=== PATIENT | male | born 1980 | race Caucasian/White ===

== ENCOUNTER 2017-03-16 23:32 | Inpatient (IN) | payer MEDICAID ==
[~2017-03-16] VITALS: Ht 182.9 cm; Wt 85.3 kg
--- NOTE | 2017-03-17 00:26 | NUR ---
PT WALKED INTO ER C/O LEFT FOREARM PAIN/EDEMA SINCE 0900, PT IS ALERT, ORIENTED X 4, NO RESP DISTRESS NOTED OR REPORTED UPON ASSESSMENT... MD AT BEDSIDE....
[2017-03-17] MEDS ORDERED: PIPERACILLIN SODIUM/TAZOBACTAM 3.375 G in IV DEXTROSE 5% 50 ML IV ONE ×2 (01:15→03:00)
[2017-03-17] MEDS ORDERED: VANCOMYCIN IV 1,000 MG in IV DEXTROSE 5% 250 ML IV ONE (01:15)
[2017-03-17] MEDS ORDERED: Z GUARD REMEDY PASTE 57 GM TUBE TOP PRN (02:00)
[2017-03-17] MEDS ORDERED: ONDANSETRON 4 MG/2 ML VIAL IV PRN (02:00)
[2017-03-17] MEDS ORDERED: KETOROLAC TROMETHAMINE 30 MG INJ IVP PRN (02:00)
[2017-03-17] MEDS ORDERED: ACETAMINOPHEN 325 MG TABLET PO PRN (02:00)
[2017-03-17] MEDS ORDERED: TEMAZEPAM 7.5 MG CAPSULE PO PRN (02:00)
[2017-03-17] MEDS ORDERED: MAGNESIUM HYDROXIDE 30 ML LIQUID UDC PO PRN (02:00)
[2017-03-17] MEDS ORDERED: CEFTRIAXONE 1 G VIAL IM ONE (02:15)
[2017-03-17] MEDS ORDERED: METRONIDAZOLE 500 MG TABLET PO ONE (02:15)
[2017-03-17] MEDS ORDERED: HYDROMORPHONE 1 MG/1 ML DISP.SYRIN IM ONE (02:15)
[2017-03-17] MEDS ORDERED: SULFAMETH/TRIMETH 800/160 MG TABLET PO ONE (02:15)
[2017-03-17] MEDS ORDERED: HYDROMORPHONE 2 MG/1 ML DISP.SYRIN ONE (03:11)
[2017-03-17] MEDS ORDERED: SULFAMETH/TRIMETH 800/160 MG TABLET ONE (03:11)
[2017-03-17] MEDS ORDERED: LIDOCAINE 1%-EPI 1:100,000 20 ML VIAL ONE (03:11)
[2017-03-17] MEDS ORDERED: CEFTRIAXONE 1 G VIAL ONE (03:11)
[2017-03-17] MEDS ORDERED: METRONIDAZOLE 500 MG TABLET ONE (03:12)
[2017-03-17] MEDS ORDERED: PIPERACILLIN/TAZOBACTAM/D5W 50 ML IV ONE (03:15)
--- NOTE | 2017-03-17 03:25 | NUR ---
PHARMACY NOTE: OPENED AND WASTED LIDOCAINE 1% WITH EPI DUE TO ERROR, USED ALREADY OPENED VIAL OF LIDOCAINE 1% THAT WAS TIME AND DATED IN MEDICATION ROOM...
--- NOTE | 2017-03-17 03:45 | NUR ---
RECEIVED PATIENT VIA GURNEY FROM ER. PATIENT IS A/O X4. C/O PAIN IN LEFT ARM. HEPLOCK NOTED TO LEFT INDEX FINGER #20 GAUGE. ORIENTED PATIENT TO ROOM AND CALL LIGHT. CALL LIGHT IN REACH. ALL NEEDS ATTENDED. WILL CONTINUE TO MONITOR AND ASSESS.
--- NOTE | 2017-03-17 03:55 | NUR ---
Pt. admitted to Med Surg , under care of Dr. Tomi Hood, [place]ongs List completed, pt is alert, oriented x 4, no resp distress noted or reported upon transfer assessment...pt transferred via gurney...
--- NOTE | 2017-03-17 04:00 | NUR ---
REPORTED BY ER PRIOR TO ADMISSION THAT NO LABS WERE ABLE TO BE DRAWN. PLAN IS FOR PATIENT TO HAVE MID-LINE INSERTED TODAY. DIRECTOR INVESTMENT BANKING NOTIFIED.
[2017-03-17] MEDS: IV NS 1000 ML 1,000 ML IV PRN ×2 (04:09→23:00)
[2017-03-17 04:30] VITALS: BP 97/46
--- NOTE | 2017-03-17 04:45 | NUR ---
PATIENT C/O "INTENSE PAIN" AND REQUESTING FOR "STRONGER PAIN MEDICATION." PATIENT BP IS 97/46 AT THIS TIME. WILL CONTINUE TO MONITOR AND ASSESS BLOOD PRESSURE.
--- NOTE | 2017-03-17 04:52 | NUR ---
PATIENT DOZING OFF IN BED. NO FACIAL GRIMACE NOTED. NO S/S OF PAIN OR DISCOMFORT. WILL CONTINUE TO MONITOR.
[2017-03-17] MEDS ORDERED: PIPERACILLIN/TAZOBACTAM/D5W 50 ML IV SCH ×2 (06:00→08:10)
[2017-03-17 06:29] VITALS: BP 115/63
--- NOTE | 2017-03-17 06:31 | NUR ---
PATIENT AWAKE IN BED. RECHECKED PATIENTS BLOOD PRESSURE 115/63. ALL OTHER VSS. PATIENT STATING HE HAS PAIN IN ARMS. OFFERED TORADOL IV ORDERED BUT PATIENT REFUSED AND STATED, "THAT MEDICATION DOESN'T WORK." CALLED OUT TO DR. NELSON PROPOSAL LEAD WRITER FOR FURTHER ORDERS. WILL CONTINUE TO MONITOR.
--- NOTE | 2017-03-17 06:43 | NUR ---
SPOKE WITH DR. NELSON. NO NEW ORDERS REGARDING PAIN MEDICATION AT THIS TIME. SUBWAY REPAIR SUPERVISOR NOTIFIED.
--- NOTE | 2017-03-17 07:58 | NUR ---
Awake, alert, oriented x 4, complaining of pain of left arm. Left arm red, swollen. IVF stopped infusing on the left index finger at this time, will wait for midline insertion. Plan of care and pain management discussed.
[2017-03-17] MEDS ORDERED: VANCOMYCIN IV 1 G in PREMIXED 0 EACH IV ONE (09:00)
[2017-03-17] MEDS: PANTOPRAZOLE SODIUM 40 MG TABLET.DR PO SCH (09:59)
--- NOTE | 2017-03-17 10:17 | NUR ---
Followed up call to midline nurse. IV antibiotics not given pending IV access
[2017-03-17 11:00] VITALS: BP 114/68
[2017-03-17] MEDS ORDERED: LORAZEPAM 1 MG TABLET PO PRN (14:30)
[2017-03-17] MEDS: ASPIRIN EC 81 MG TABLET.DR PO SCH (15:22)
--- NOTE | 2017-03-17 15:22 | NUR ---
Doppler LUE showed thrombophlebitis of rleft arm. Started on aspirin. No open wound or drainage noted on left arm, wound CS can not be done
[2017-03-17] MEDS: HYDROCODONE/APAP 5-325MG TABLET PO PRN (15:25)
--- NOTE | 2017-03-17 15:30 | NUR ---
Anshu for midline called back, will be able to come around 7 pm tonight for midline insertion. Janice ANTHROPOLOGY INSTRUCTOR informed. pharmacist informed
[2017-03-17 15:32] VITALS: BP 135/84
--- NOTE | 2017-03-17 18:00 | NUR ---
Dr. Conde for ID seen patient with orders. MRSA nares swab done sent to lab. Placed on contact isolation, with history of MRSA, pending swab result. Patient and friend instructed and educated. PO antibiotics given as ordered, pending midline placement, and will resume IV antibiotics once line placed. Anxious, Ativan po given. Endorsed for further care and follow up
[2017-03-17] MEDS: SULFAMETH/TRIMETH 800/160 MG TABLET PO SCH ×2 (18:01→21:31)
[2017-03-17] MEDS: CEPHALEXIN MONOHYDRATE 500 MG CAPSULE PO SCH (18:01)
--- NOTE | 2017-03-17 19:00 | NUR ---
PATIENT IN BED SLEEPY BUT EASILY AROUSABLE, NO SOB NO CHEST PAIN NOTED, CONT TO MONITOR.
[2017-03-17 20:00] VITALS: BP 139/78
--- NOTE | 2017-03-17 21:15 | NUR ---
PATIENT HAS MIDLINE GAUGE 20, INSERTED BY [place] MIDLINE STAFF, TOLERATE WELL, MIDLINE AT LEFT UPPER ARM 2 PORT BUT ONE MIDLINE. MIDLINE PATENT, AND INTACT, WITH FAIRLY GOOD BLOOD RETURN. ALL LAB DRAW DONE TODAY. STARTED THE IV HYDRATION AND IV ABX, PROCEDURE TOLERATE WELL. CONT TO MONITOR.
[2017-03-17 22:34] LABS: BASOPHILS # (AUTO) 0.1 K/uL (0.0-8.0); BASOPHILS % (AUTO) 1.1 % (0.0-2.0); EOSINOPHILS # (AUTO) 0.1 K/uL (0.0-0.7); EOSINOPHILS % (AUTO) 1.8 % (0.0-7.0); HEMATOCRIT 29.4 % (40-50); HEMOGLOBIN 10.2 G/DL (14.0-18.0); LYMPHOCYTES # (AUTO) 0.9 K/UL (0.8-4.8); LYMPHOCYTES % (AUTO) 13.5 % (20.5-51.5); MEAN CORPUSCULAR HEMOGLOBIN 29.3 UUG (27.0-31.0); MEAN CORPUSCULAR HGB CONC 35 g/dL (32.0-37.0); MEAN CORPUSCULAR VOLUME 84.7 FL (82.0-92.0); MONOCYTES # (AUTO) 0.5 K/UL (0.1-1.30); MONOCYTES % (AUTO) 7.5 % (0.0-11.0); NEUTROPHILS # (AUTO) 4.8 K/UL (1.8-8.9); NEUTROPHILS % (AUTO) 76.1 % (38.5-71.5); PLATELET COUNT (AUTO) 167 K/UL (150-450); RED BLOOD CELL COUNT(AUTO) 3.47 MIL/UL (4.7-6.1); WHITE BLOOD COUNT (AUTO) 6.4 K/UL (4.0-11.2)
[2017-03-17 22:36] LABS: POTASSIUM 4.1 mmol/L (3.5-5.1)
[2017-03-17 22:42] LABS: BILIRUBIN,TOTAL 0.8 mg/dL (0.2-1.0); MAGNESIUM 1.9 mg/dL (1.8-2.4); PHOSPHOROUS 4.4 mg/dL (2.5-4.9)
[2017-03-17 22:50] LABS: BAND % (MANUAL) 10 % (0-10); EOSINOPHILS % (MANUAL) 1 % (0-8); LYMPHOCYTES % (MANUAL) 12 % (20-40); MONOCYTES % (MANUAL) 6 % (2-10); NEUTROPHILS % (MANUAL) 71 % (42-75)
--- NOTE | 2017-03-18 00:13 | NUR ---
KEFLEX NOT GIVEN, STARTED IV ANTIBIOTICS ORDERED.
[2017-03-18] MEDS: HYDROCODONE/APAP 5-325MG TABLET PO PRN ×2 (02:28→08:53)
[2017-03-18] MEDS: CEPHALEXIN MONOHYDRATE 500 MG CAPSULE PO SCH ×2 (06:00)
[2017-03-18 06:04] VITALS: BP 112/64
[2017-03-18] MEDS: PANTOPRAZOLE SODIUM 40 MG TABLET.DR PO SCH (06:32)
--- NOTE | 2017-03-18 06:35 | NUR ---
KEFLEX MEDS NOT GIVEN IV ANTIBIOTICS STARTED. PER ORDER.
--- NOTE | 2017-03-18 07:04 | NUR ---
PATIENT ALERT ORIENTED, REMAIN ON ISOLATION POSSIBLE MRSA UNSPECIFIED SITE, MIDLINE INTACT PATENT, ON PAIN MANAGEMENT, NO SOB NO CHEST PAIN NOTED, CONT TO MONITOR.
[2017-03-18] MEDS ORDERED: VANCOMYCIN IV 1,250 MG in IV DEXTROSE 5% 500 ML IV SCH (08:00)
--- NOTE | 2017-03-18 08:00 | NUR ---
RESTING WELL NO PAIN OR SOB CONTINUE IVF INFUSION WELL CALL LIGHT WITHIN REACH
[2017-03-18] MEDS: PIPERACILLIN/TAZOBACTAM/D5W 3.375 G in PREMIXED 1 EACH IV SCH ×3 (08:39→22:21)
[2017-03-18] MEDS: VANCOMYCIN IV 1,250 MG in IV DEXTROSE 5% 500 ML IV SCH ×4 (08:40→20:01)
[2017-03-18] MEDS: ASPIRIN EC 81 MG TABLET.DR PO SCH (08:40)
[2017-03-18] MEDS: IV NS 1000 ML 1,000 ML IV PRN ×2 (08:54→13:38)
--- NOTE | 2017-03-18 11:00 | NUR ---
BEATRIZ LANDA SEE PATIENT AND NEW ORDER IN CHART
[2017-03-18] MEDS: MORPHINE SULFATE 2 MG/1 ML DISP.SYRIN IV PRN ×3 (11:22→20:02)
[2017-03-18 11:28] VITALS: BP 110/58
--- NOTE | 2017-03-18 12:05 | NUR ---
WOUND CARE CONSULT: PT PRESENTS AMBULATORY WITH LEFT ARM SWELLING/REDNESS, PRESENT ON ADMISSION. WILL SEE PRN. DEFER TO MD. Addendum: 03/18/17 at 1205 by ANEL ANTHONY RN Amended: Links added.
[2017-03-18 14:23] LABS: *AMPHETAMINE, URINE NEGATIVE (NEGATIVE); *BARBITURATE, URINE NEGATIVE (NEGATIVE); *CANNABINOID, URINE POSITIVE (NEGATIVE); *COCCAINE, URINE NEGATIVE (NEGATIVE); *OPIATE, URINE POSITIVE (NEGATIVE); *PHENCYCLIDINE SCREEN,URINE NEGATIVE (NEGATIVE)
--- NOTE | 2017-03-18 14:29 | NUR ---
Clinical Pharmacy Note: Vancomycin Pharmacy to Dose Subjective: To start vancomycin in this 36 yo male for indication of cellulitis. Patient also on zosyn Objective: height 72in weight 188 lbs BUN 11Scr 1.0Wbc 6.4Temp 97.9 One dose of 1gm vanco given 03/17 @2698 Assessment/Plan Will start scheduled regimen of 1250mg q9hr for expected trough of around 15.57. Trough ordered before 4th scheduled dose of regimen (due tomorrow 03/19 @ 1130). Will check level and adjust as appropriate. Will continue to monitor
[2017-03-18] MEDS ORDERED: IV NORMAL SALINE 250 ML IV ONE (14:55)
[2017-03-18] MEDS ORDERED: IOHEXOL 300MG/ML 100 ML INFUS..BTL ONE (14:55)
[2017-03-18] MEDS ORDERED: CLONIDINE TTS 2 PATCH TD SCH (15:15)
[2017-03-18 15:39] VITALS: BP 111/61
[2017-03-18 16:55] LABS: BASOPHILS % (AUTO) 0.4 % (0.0-2.0); EOSINOPHILS # (AUTO) 0.1 K/uL (0.0-0.7); EOSINOPHILS % (AUTO) 2.2 % (0.0-7.0); HEMATOCRIT 28.7 % (40-50); HEMOGLOBIN 9.8 G/DL (14.0-18.0); LYMPHOCYTES # (AUTO) 0.7 K/UL (0.8-4.8); LYMPHOCYTES % (AUTO) 11.6 % (20.5-51.5); MEAN CORPUSCULAR HEMOGLOBIN 29.4 UUG (27.0-31.0); MEAN CORPUSCULAR HGB CONC 34 g/dL (32.0-37.0); MEAN CORPUSCULAR VOLUME 86.1 FL (82.0-92.0); MONOCYTES # (AUTO) 0.4 K/UL (0.1-1.30); MONOCYTES % (AUTO) 6.7 % (0.0-11.0); NEUTROPHILS # (AUTO) 4.8 K/UL (1.8-8.9); NEUTROPHILS % (AUTO) 79.1 % (38.5-71.5); PLATELET COUNT (AUTO) 142 K/UL (150-450); RED BLOOD CELL COUNT(AUTO) 3.33 MIL/UL (4.7-6.1)
[2017-03-18 17:00] LABS: BILIRUBIN,TOTAL 0.7 mg/dL (0.2-1.0); CREATININE 1.3 mg/dL (0.6-1.3); MAGNESIUM 1.9 mg/dL (1.8-2.4); PHOSPHOROUS 4.5 mg/dL (2.5-4.9); POTASSIUM 4.1 mmol/L (3.5-5.1); TOTAL PROTEIN, SERUM 6.8 g/dL (6.4-8.2)
[2017-03-18 17:10] LABS: THYROID STIMULATING HORMONE 1.688 mIU/mL (0.358-3.740)
[2017-03-18] MEDS: METHADONE HCL 10 MG TABLET PO SCH (17:37)
--- NOTE | 2017-03-18 18:00 | NUR ---
STABLE HEMODYNAMIC STATUS PAIN ,UNDER CONTROL KEEP LEFT ARM UP ON PILLOW AT ALL TIME NO RESPIRATORY DISTRESS SAFETY MEASURE PROVIDED CALL LIGHT IN REACH
--- NOTE | 2017-03-18 18:00 | NUR ---
VANCOMYCIN HOLD DOSE UNTIL MIDLINE INSERTION TONIGHT BECAUSE OF DVT ON LEFT ARM FROM CT SCAN RESULT
--- NOTE | 2017-03-18 19:00 | NUR ---
DR JACKSON WAS INFORM OF CT LEFT ARM RESULT AND IV SITE MIDLINE WILL CHANGE TO RIGHT ARM TONIGHT NO NEW ORDER
[2017-03-18] MEDS: LACTOBACILLUS RHAMNOSUS GG 1 EACH CAPSULE PO SCH (20:07)
[2017-03-18 20:10] VITALS: BP 128/72
--- NOTE | 2017-03-18 20:15 | NUR ---
VANCO GIVEN LATE, MED WAS HELD AT 1800 DUE TO MIDLINE INSERTION.
[2017-03-19] MEDS: MORPHINE SULFATE 2 MG/1 ML DISP.SYRIN IV PRN ×6 (00:11→22:33)
[2017-03-19] MEDS: VANCOMYCIN IV 1,250 MG in IV DEXTROSE 5% 500 ML IV SCH (03:26)
--- NOTE | 2017-03-19 04:42 | NUR ---
ON PAIN MANAGEMENT FOR LEFT ARM PAIN, WAS GIVEN MS PRESCRIBED. PT IS SLEEPING AT THIS TIME, IN NO ACUTE SIGNS OF DISTRESS. CONTINUE TO MONITOR.
[2017-03-19] MEDS: PIPERACILLIN/TAZOBACTAM/D5W 3.375 G in PREMIXED 1 EACH IV SCH ×3 (06:07→22:16)
[2017-03-19] MEDS: PANTOPRAZOLE SODIUM 40 MG TABLET.DR PO SCH (06:07)
[2017-03-19 06:44] VITALS: BP 125/61
--- NOTE | 2017-03-19 07:30 | NUR ---
RECEIVED PATIENT IN BED AWAKE ALERT AND ORIENTED STATED COMFORTABLE AT THIS TIME RIGHT ARM REMAINS SWOLLEN ELEVATED ON THE PILLOW.ALSO RIGHT ANKLE WITH A SCAB WITH NO DRAINAGE AT THIS TIME.MID LINE ON HIS RIGHT UPPER ARM INTACT WITH IVF ORDERED AND TOLERATING WELL.MADE COMFORTABLE AND WILL OBSERVE.
[2017-03-19 07:43] LABS: CREATININE 1.2 mg/dL (0.6-1.3); PHOSPHOROUS 5.1 mg/dL (2.5-4.9); POTASSIUM 3.6 mmol/L (3.5-5.1); TOTAL PROTEIN, SERUM 7.6 g/dL (6.4-8.2)
[2017-03-19 07:45] LABS: BASOPHILS % (AUTO) 0.2 % (0.0-2.0); EOSINOPHILS # (AUTO) 0.2 K/uL (0.0-0.7); EOSINOPHILS % (AUTO) 3.6 % (0.0-7.0); HEMATOCRIT 30.3 % (40-50); HEMOGLOBIN 10.5 G/DL (14.0-18.0); LYMPHOCYTES # (AUTO) 1.2 K/UL (0.8-4.8); MEAN CORPUSCULAR HEMOGLOBIN 29.6 UUG (27.0-31.0); MEAN CORPUSCULAR HGB CONC 35 g/dL (32.0-37.0); MEAN CORPUSCULAR VOLUME 85.1 FL (82.0-92.0); MONOCYTES # (AUTO) 0.6 K/UL (0.1-1.30); MONOCYTES % (AUTO) 10.9 % (0.0-11.0); NEUTROPHILS # (AUTO) 3.9 K/UL (1.8-8.9); NEUTROPHILS % (AUTO) 64.3 % (38.5-71.5); RED BLOOD CELL COUNT(AUTO) 3.56 MIL/UL (4.7-6.1); WHITE BLOOD COUNT (AUTO) 5.9 K/UL (4.0-11.2)
[2017-03-19 07:49] LABS: THYROID STIMULATING HORMONE 4.678 mIU/mL (0.358-3.740)
[2017-03-19 07:52] LABS: PLATELET COUNT (AUTO) 191 K/UL (150-450)
[2017-03-19] MEDS: LACTOBACILLUS RHAMNOSUS GG 1 EACH CAPSULE PO SCH ×2 (08:37→20:43)
[2017-03-19] MEDS: METHADONE HCL 10 MG TABLET PO SCH (08:37)
[2017-03-19] MEDS: ASPIRIN EC 81 MG TABLET.DR PO SCH (08:37)
[2017-03-19] MEDS: IV NS 1000 ML 1,000 ML IV PRN (08:42)
--- NOTE | 2017-03-19 09:27 | NUR ---
PATIENT IS ON METHADONE AND STATED THAT HE IS STILL HAVING PAIN MEDICATED WITH MORPHINE ORDERED AND WILL OBSERVE.
[2017-03-19 12:02] VITALS: BP 120/63
[2017-03-19] MEDS: VANCOMYCIN IV 1,500 MG in IV DEXTROSE 5% 500 ML IV SCH ×2 (13:36→23:09)
--- NOTE | 2017-03-19 15:00 | NUR ---
REMAIN ON IV ANTIBIOTICS ORDERED WITH NO ADVERSE OR ALLERGIC REACTIONS AT THIS TIME.LEFT ARM VERY SWOLLEN ELEVATED ON THE PILLOW.
[2017-03-19 16:21] VITALS: BP 126/70
--- NOTE | 2017-03-19 16:42 | NUR ---
Clinical Pharmacy Note: Vancomycin Pharmacy to Dose Subjective: To continue vancomycin in this 36 yo male for indication of cellulitis. Patient also on zosyn Objective: height 72in weight 188 lbs BUN 10Scr 1.2Wbc 5.9Temp 98.6 Vancomycin trough today at 1130: 13.7 Assessment/Plan Since Vancomycin trough is under 15, will increase dose to 1500mg IV every 9hrs (starting today at 1400) and draw trough by 4th dose(not ordered yet) for expected trough around 16. Will check level and adjust as appropriate. Will continue to monitor
--- NOTE | 2017-03-19 18:00 | NUR ---
PATIENT IS OFF ISOLATION AT THIS TIME SO HE WAS ABLE TO AMBULATE IN THE HALLWAY WITH HIS GIRL FRIEND AND TOLERATED WELL.
[2017-03-19 19:00] VITALS: BP 133/75
[2017-03-20] MEDS: MORPHINE SULFATE 2 MG/1 ML DISP.SYRIN IV PRN ×5 (03:22→21:05)
[2017-03-20 05:08] VITALS: BP 113/56
[2017-03-20] MEDS: IV NS 1000 ML 1,000 ML IV PRN ×2 (05:12→18:30)
[2017-03-20] MEDS: PANTOPRAZOLE SODIUM 40 MG TABLET.DR PO SCH (07:37)
[2017-03-20] MEDS: LACTOBACILLUS RHAMNOSUS GG 1 EACH CAPSULE PO SCH ×2 (08:08→20:23)
[2017-03-20] MEDS: METHADONE HCL 10 MG TABLET PO SCH (08:08)
[2017-03-20] MEDS: ASPIRIN EC 81 MG TABLET.DR PO SCH (08:08)
--- NOTE | 2017-03-20 08:08 | NUR ---
PATIENT MEDICATED WITH MORPHINE FOR PAIN REQUESTED.LEFT ARM IS STILL SWOLLEN ELEVATED ON THE PILLOW ALL DUE MEDICATIONS GIVEN AND PATIENT MADE COMFORTABLE.
[2017-03-20] MEDS: VANCOMYCIN IV 1,500 MG in IV DEXTROSE 5% 500 ML IV SCH ×2 (08:11→20:23)
[2017-03-20 08:20] LABS: BASOPHILS % (AUTO) 0.8 % (0.0-2.0); EOSINOPHILS # (AUTO) 0.2 K/uL (0.0-0.7); EOSINOPHILS % (AUTO) 2.6 % (0.0-7.0); HEMATOCRIT 28.4 % (40-50); HEMOGLOBIN 9.7 G/DL (14.0-18.0); LYMPHOCYTES # (AUTO) 1.1 K/UL (0.8-4.8); LYMPHOCYTES % (AUTO) 17.2 % (20.5-51.5); MEAN CORPUSCULAR HEMOGLOBIN 29.2 UUG (27.0-31.0); MEAN CORPUSCULAR HGB CONC 34 g/dL (32.0-37.0); MEAN CORPUSCULAR VOLUME 85.3 FL (82.0-92.0); MONOCYTES # (AUTO) 0.6 K/UL (0.1-1.30); MONOCYTES % (AUTO) 9.2 % (0.0-11.0); NEUTROPHILS # (AUTO) 4.3 K/UL (1.8-8.9); NEUTROPHILS % (AUTO) 70.2 % (38.5-71.5); PLATELET COUNT (AUTO) 179 K/UL (150-450); RED BLOOD CELL COUNT(AUTO) 3.33 MIL/UL (4.7-6.1); WHITE BLOOD COUNT (AUTO) 6.2 K/UL (4.0-11.2)
[2017-03-20 08:27] LABS: BILIRUBIN,TOTAL 0.8 mg/dL (0.2-1.0); PHOSPHOROUS 5.3 mg/dL (2.5-4.9); TOTAL PROTEIN, SERUM 7.2 g/dL (6.4-8.2)
--- NOTE | 2017-03-20 10:28 | NUR ---
PATIENT SEEN AND EXAMINED BY CECILIA GONZALEZ LAUNDRY WASHER WITH NEW ORDERS AND NOTED
--- NOTE | 2017-03-20 11:00 | NUR ---
PATIENT NOTIFIED AND INSTRUCTED THAT HE NEEDS TO PROVIDE A STOOL SPECIMEN EDUCATED AND SPECIMEN CUP PROVIDED.
[2017-03-20 11:07] LABS: IRON, SERUM 36 ug/dL (50-175)
[2017-03-20 11:57] VITALS: BP 132/81
[2017-03-20] MEDS: FERROUS SULFATE 325 MG TABEC PO SCH (12:25)
[2017-03-20 14:42] LABS: *OCCULT BLOOD STOOL NEGATIVE (NEGATIVE)
--- NOTE | 2017-03-20 14:51 | NUR ---
RESULT OF STOOL FOR OCCULT BLOOD IS NEGATIVE CECILIA CANARY BREEDER AWARE SPOKE TO THE PATIENT WITH DISCHARGE PLANNING FOR TOMORROW.
[2017-03-20 16:10] VITALS: BP 117/72
--- NOTE | 2017-03-20 16:31 | NUR ---
Clinical Pharmacy Note: Vancomycin Pharmacy to Dose Subjective: To continue vancomycin in this 36 yo male for indication of cellulitis. Patient also on zosyn Objective: height 72in weight 188 lbs BUN 8Scr 1.0Wbc 6.2Temp 97.9 Assessment/Plan As renal function stable, will continue vancomycin 1500mg IV every 9hrs and draw trough by 4th dose(due today at 1630) for expected trough around 16. Will check level and adjust as appropriate. Will continue to monitor Addendum: 03/20/17 at 1847 by NOMI MCCARTHY ADM VANCOMYCIN TROUGH IS 14 WILL CHANGE DOSE TO 1500 Q8H AND WILL ORDER LEVEL PRIOR TO 4TH DOSE
--- NOTE | 2017-03-20 17:00 | NUR ---
PATIENT SEEN AND EXAMINED BY CECILIA ART TRACER WITH DISCHARGE PLANNING FOR TOMORROW.
--- NOTE | 2017-03-20 18:49 | NUR ---
RESTING AWAITING FOR PHARMACY TO DOSE THE VANCOMICIN TROUGH IS 14.0
[2017-03-20 19:00] VITALS: BP 145/93
--- NOTE | 2017-03-20 19:30 | NUR ---
RECEIVED PT UP IN A CHAIR, IN NO ACUTE SIGNS OF DISTRESS. DENIES PAIN AT THIS TIME. IVF INFUSING. SAFETY OBSERVED. CALL LIGHT WITHIN REACH.
[2017-03-21] MEDS: MORPHINE SULFATE 2 MG/1 ML DISP.SYRIN IV PRN ×3 (01:57→13:11)
[2017-03-21] MEDS: VANCOMYCIN IV 1,500 MG in IV DEXTROSE 5% 500 ML IV SCH ×2 (03:29→12:03)
[2017-03-21 04:37] VITALS: BP 119/61
[2017-03-21] MEDS: PANTOPRAZOLE SODIUM 40 MG TABLET.DR PO SCH (06:06)
--- NOTE | 2017-03-21 06:33 | NUR ---
PT IN BED, SLEEPING, AROUSABLE TO NAME AND TOUCH. ON PAIN MANAGEMENT WITH MS FOR LEFT ARM PAIN, EFFECTIVE FOR FEW HOURS. IVF STILL INFUSING. ALL NEEDS RENDERED. SAFETY MAINTAINED. CALL LIGHT WITHIN REACH.
[2017-03-21 07:08] LABS: BASOPHILS % (AUTO) 0.3 % (0.0-2.0); EOSINOPHILS # (AUTO) 0.2 K/uL (0.0-0.7); EOSINOPHILS % (AUTO) 2.6 % (0.0-7.0); HEMATOCRIT 27.3 % (40-50); HEMOGLOBIN 9.4 G/DL (14.0-18.0); LYMPHOCYTES # (AUTO) 1.2 K/UL (0.8-4.8); MEAN CORPUSCULAR HEMOGLOBIN 29.3 UUG (27.0-31.0); MEAN CORPUSCULAR HGB CONC 34 g/dL (32.0-37.0); MEAN CORPUSCULAR VOLUME 85.2 FL (82.0-92.0); MONOCYTES # (AUTO) 0.5 K/UL (0.1-1.30); MONOCYTES % (AUTO) 7.5 % (0.0-11.0); NEUTROPHILS # (AUTO) 4.7 K/UL (1.8-8.9); NEUTROPHILS % (AUTO) 71.6 % (38.5-71.5); PLATELET COUNT (AUTO) 182 K/UL (150-450); WHITE BLOOD COUNT (AUTO) 6.6 K/UL (4.0-11.2)
[2017-03-21 07:17] LABS: BILIRUBIN,TOTAL 0.8 mg/dL (0.2-1.0); MAGNESIUM 1.9 mg/dL (1.8-2.4); PHOSPHOROUS 4.3 mg/dL (2.5-4.9); POTASSIUM 3.7 mmol/L (3.5-5.1); TOTAL PROTEIN, SERUM 7.1 g/dL (6.4-8.2)
--- NOTE | 2017-03-21 08:00 | NUR ---
PATIENT IS RESTING IN HIS ROOM COMFORTABLE AT THIS TIME.REMAIN ON IV FLUIDS ORDERED WITH MID LINE INTACT TO HIS RIGHT ARM WITH NO S/S OF INFILTERATION AT THIS TIME.LEFT SWELLING IS LESS TODAY.PATIENT ENCOURAGED TO CONTINUE TO ELEVATE ON THE PILLOW AND HE EXPRESSED UNDERSTANDING.
[2017-03-21] MEDS: ASPIRIN EC 81 MG TABLET.DR PO SCH (08:46)
[2017-03-21] MEDS: LACTOBACILLUS RHAMNOSUS GG 1 EACH CAPSULE PO SCH (08:46)
[2017-03-21] MEDS: METHADONE HCL 10 MG TABLET PO SCH (08:46)
[2017-03-21] MEDS: FERROUS SULFATE 325 MG TABEC PO SCH (08:46)
[2017-03-21] MEDS: IV NS 1000 ML 1,000 ML IV PRN (08:47)
--- NOTE | 2017-03-21 11:13 | NUR ---
Clinical Pharmacy Note: Vancomycin Pharmacy to Dose Subjective: To continue vancomycin in this 36 yo male for indication of LUE cellulitis. Objective: height 72in weight 188 lbs BUN 9Scr 1.0Wbc 6.6Temp 98.2 Assessment/Plan Will continue same dose of vancomycin 1500mg IV every 8hrs for today. Third dose is due today at noon. Plan to draw trough by 4th dose(due today at 1930). Pharmacist shall check level and adjust as appropriate. Will continue to monitor
[2017-03-21 11:51] VITALS: BP 127/66
--- NOTE | 2017-03-21 12:33 | NUR ---
Had been in contact with Andres Edwards from [facility] [ ext. [phone]; ] and she checked the patient's insurance. Unfortunately, they can't take the patient today because he does not have Medicare and with his insurance, there is a waiting list until 04/09/17. She spoke to the patient and informed him. He requested to be placed in a detention. Karen from [employer] [ ] provided these available shelters: [facility] [address] [address] [address] after 6:[address] [facility] [address] [place] [address] Mondays after 2:00 p.m. [facility] [address] [place] [id number] Mondays 7:00 a.m. First come first serve Provided the list to the patient and he stated that he is calling his friend to pick him up and perhaps stay with him. His RN, Jerri, is aware of his discharge plan.
--- NOTE | 2017-03-21 12:44 | NUR ---
PATIENT REMAINS ON IV ANTIBIOTICS ORDERED WITH NO ADVERSE OR ALLERGIC REACTIONS AT THIS TIME
[2017-03-21] MEDS ORDERED: FERR325T28 PO (13:22)
[2017-03-21] MEDS ORDERED: SULF1TAB3 PO (13:22)
[2017-03-21] MEDS ORDERED: LACT1CAP57 PO (13:22)
[2017-03-21] MEDS ORDERED: METH10TA PO (13:22)
[2017-03-21] MEDS ORDERED: CEPH500C2 PO (13:22)
[2017-03-21] MEDS ORDERED: CLON1PAT2 TD (13:22)
[2017-03-21] MEDS ORDERED: ASPI-618 PO (13:22)
--- NOTE | 2017-03-21 14:30 | NUR ---
DISCHARGE ORDER RECEIVED AND NOTED AND PATIENT STATED THAT HIS FRIEND SOO WILL BE HERE SOON AND PICK HIM UP.MIDLINE REMOVED AND PRESSURE APPLIED AND PATIENT ASSISTED WITH SHOWERING AWAITING FOR LICENSED BONDSMAN.
--- NOTE | 2017-03-21 15:00 | NUR ---
THE PHARMACIST WAS INFORMED OF DISCHARGE MEDICATION EDUCATION.
--- NOTE | 2017-03-21 15:30 | NUR ---
PATIENT DISCHARGED PICKED UP BY HIS FRIEND SOO IN SATISFACTORY CONDITION WITH DISCHARGE INSTRUCTIONS AND PRESCRIPTIONS AND PATIENT INSTRUCTED TO CONTINUE HIS ANTIBIOTICS ORDERED AND CALL HIS PRIMARY DOCTOR FOR A FOLLOW UP APPOINTMENT TO [facility] FOR A DRUG REHAB PROGRAM AND HE EXPRESSED UNDERSTANDING.
[2017-03-21] MEDS ORDERED: CEPHALEXIN MONOHYDRATE 500 MG CAPSULE PO SCH (18:00)
[2017-03-21] MEDS ORDERED: SULFAMETH/TRIMETH 800/160 MG TABLET PO SCH (21:00)
== END 2017-03-21 15:30 | disposition home or self-care (01) | DRG 383 ==
LOC: ER 23:35 → MED 03-17 03:32
PROVIDERS: ADMIT Family Medicine; ATTEND Family Medicine
PROC: 05H633Z Insertion of Infusion Device into Left Subclavian Vein, Percutaneous Approach (ICD-10-PCS; principal; 2017-03-17)
PROC: B547ZZA Ultrasonography of Left Subclavian Vein, Guidance (ICD-10-PCS; principal; 2017-03-17)
PROC: 05H533Z Insertion of Infusion Device into Right Subclavian Vein, Percutaneous Approach (ICD-10-PCS; 2017-03-18)
DX: L03.114 Cellulitis of left upper limb (principal); D68.9 Coagulation defect, unspecified; D68.59 Other primary thrombophilia; E44.0 Moderate protein-calorie malnutrition; D69.6 Thrombocytopenia, unspecified; E87.1 Hypo-osmolality and hyponatremia; I80.8 Phlebitis and thrombophlebitis of other sites; F11.20 Opioid dependence, uncomplicated; Z59.0 Homelessness; F17.200 Nicotine dependence, unspecified, uncomplicated; L02.11 Cutaneous abscess of neck; D64.9 Anemia, unspecified; E03.9 Hypothyroidism, unspecified; E83.39 Other disorders of phosphorus metabolism; Z79.82 Long term (current) use of aspirin; Z88.6 Allergy status to analgesic agent; Z88.5 Allergy status to narcotic agent; F41.9 Anxiety disorder, unspecified; F32.9 Major depressive disorder, single episode, unspecified; Z86.14 Personal history of Methicillin resistant Staphylococcus aureus infection; Z90.49 Acquired absence of other specified parts of digestive tract; M21.932 Unspecified acquired deformity of left forearm; F12.929 Cannabis use, unspecified with intoxication, unspecified
CPT/HCPCS: 36415; 36569; 71010; 73090; 80307; 83550; 83605; 83735; 84100; 84443; 84481; 85025; 85610; 85651; 85730; 86140; 87040; 87806; A4663; J0696; J1170; J1885; J2270; J2543; J3370; J3490; J7030; J7050; J7060; Q9967

== ENCOUNTER 2017-08-19 16:36 | Emergency (ER) | payer MEDICAID ==
[~2017-08-19] VITALS: Ht 182.9 cm; Wt 93.0 kg
[~2017-08-19 16:36] MED LIST: ASPI-618 PO; CEPH500C2 PO; CLON1PAT2 TD; FERR325T28 PO; LACT1CAP57 PO; METH10TA PO; SULF1TAB3 PO
[2017-08-19] MEDS ORDERED: PIPERACILLIN SODIUM/TAZOBACTAM 3.375 G in IV DEXTROSE 5% 50 ML IV ONE (18:15)
[2017-08-19] MEDS ORDERED: VANCOMYCIN IV 1,000 MG in IV DEXTROSE 5% 250 ML IV ONE (18:15)
[2017-08-19] MEDS ORDERED: HYDROMORPHONE 1 MG/1 ML DISP.SYRIN IV ONE (18:15)
[2017-08-19] MEDS ORDERED: IV NORMAL SALINE 1000 ML BAG IV ONE (18:15)
[2017-08-19] MEDS ORDERED: ONDANSETRON 4 MG/2 ML VIAL IV ONE (18:15)
[2017-08-19] MEDS ORDERED: HYDR-548 PO (18:18)
[2017-08-19 18:50] LABS: *BILIRUBIN,URIN NEGATIVE (NEGATIVE); *BLOOD, URINE NEGATIVE (NEGATIVE); *CLARITY,URINE CLOUDY (CLEAR); *COLOR,URINE YELLOW (YELLOW); *KETONES,URINE NEGATIVE (NEGATIVE); *PROTEIN,URINE NEGATIVE (NEGATIVE); LEUKOCYTE ESTERASE ,URINE NEGATIVE (NEGATIVE); NITRITE, URINE NEGATIVE (NEGATIVE); PH,URINE 8.5 (5.0-8.0); UGLUCOSE NEGATIVE (NEGATIVE)
--- NOTE | 2017-08-19 18:50 | NUR ---
cxr/elbow xraty done, lab was able to draw blood, i attempted 3 times and was unable to place an iv line, dr epstein was notified.
[2017-08-19 18:52] LABS: BASOPHILS % (AUTO) 0.3 % (0.0-2.0); EOSINOPHILS # (AUTO) 0.1 K/uL (0.0-0.7); EOSINOPHILS % (AUTO) 1.5 % (0.0-7.0); HEMATOCRIT 37.7 % (40-50); HEMOGLOBIN 12.9 G/DL (14.0-18.0); LYMPHOCYTES # (AUTO) 1.3 K/UL (0.8-4.8); LYMPHOCYTES % (AUTO) 17.8 % (20.5-51.5); MEAN CORPUSCULAR HEMOGLOBIN 30.8 UUG (27.0-31.0); MEAN CORPUSCULAR HGB CONC 34 g/dL (32.0-37.0); MEAN CORPUSCULAR VOLUME 89.7 FL (82.0-92.0); MONOCYTES # (AUTO) 0.4 K/UL (0.1-1.30); MONOCYTES % (AUTO) 5.3 % (0.0-11.0); NEUTROPHILS # (AUTO) 5.5 K/UL (1.8-8.9); NEUTROPHILS % (AUTO) 75.1 % (38.5-71.5); PLATELET COUNT (AUTO) 167 K/UL (150-450); WHITE BLOOD COUNT (AUTO) 7.3 K/UL (4.0-11.2)
[2017-08-19 19:02] LABS: CREATININE 0.8 mg/dL (0.6-1.3); POTASSIUM 3.8 mmol/L (3.5-5.1)
[2017-08-19 19:07] LABS: MUCUS,URINE MODERATE /LPF (0-FEW); URINE AMORPHOUS PHOSPHATES MANY /HPF; WBC,URINE NONE SEEN /HPF (0-3)
--- NOTE | 2017-08-19 19:14 | NUR ---
SBAR REPORT TO BRIANNA, PRESENTLY PT HAVING AN SUMA DONE.
[2017-08-19 19:15] LABS: BILIRUBIN,DIRECT 0.3 mg/dL (0.0-0.2); BILIRUBIN,TOTAL 1.7 mg/dL (0.2-1.0); TOTAL PROTEIN, SERUM 7.8 g/dL (6.4-8.2)
--- NOTE | 2017-08-19 20:46 | NUR ---
Call placed to [facility], Dr. Bowman speaking with PIYUSH.
[2017-08-19 21:24] VITALS: BP 138/82
--- NOTE | 2017-08-19 21:24 | NUR ---
Patient discharged to home in stable conditon. Written and verbal after care instructions given. Patient verbalizes understanding of instructions.
== END 2017-08-19 21:25 | disposition home or self-care (01) ==
LOC: ER 16:37
DX: I82.612 Acute embolism and thrombosis of superficial veins of left upper extremity (principal); M71.22 Synovial cyst of popliteal space [Baker], left knee; F32.9 Major depressive disorder, single episode, unspecified; F41.9 Anxiety disorder, unspecified; Z59.0 Homelessness; Z79.82 Long term (current) use of aspirin; F17.200 Nicotine dependence, unspecified, uncomplicated; Z88.6 Allergy status to analgesic agent; Z90.49 Acquired absence of other specified parts of digestive tract
CPT/HCPCS: 36415; 71010; 73080; 80048; 80076; 81001; 83605; 83880; 84484; 85025; 85730; 87040 ×2; 87086; 93005; 93970; 93971; 99285; A4663; J7030; J7060; 70030-TC